=== PATIENT | male | born 1955 | race Caucasian/White ===

== ENCOUNTER → 2016-06-01 | Outpatient (REF) | payer OTHER | LOC: M LAB REF 12:25 | PROVIDERS: ATTEND Nurse Practitioner Adult Health | DX: R31.9 Hematuria, unspecified (principal) ==

== ENCOUNTER → 2016-08-26 | Outpatient (REF) | payer OTHER | LOC: M LAB REF 12:21 | PROVIDERS: ATTEND Nurse Practitioner Adult Health | DX: Z01.818 Encounter for other preprocedural examination (principal); N20.0 Calculus of kidney; R31.9 Hematuria, unspecified ==

== ENCOUNTER → 2016-12-06 | Outpatient (REF) | payer OTHER ==
[~2016-12-06] MED LIST: ACET30TAB PO; ASPI1TAB PO; CO Q10CA PO; COUM2.5T17 PO; FISH100049 PO; LISI10TA4 PO; MULT1TAB10 PO; OMEGCAP2 PO; PERC5TAB12 PO; ROSU20TA PO; SOMA250T PO; UBIQ100C3 PO
== END ==
LOC: M LAB REF 13:16
PROVIDERS: ATTEND Nurse Practitioner Adult Health
DX: N39.0 Urinary tract infection, site not specified (principal)

== ENCOUNTER 2017-09-15 08:00 | Day surgery (SDC) | payer OTHER ==
[2017-09-15] MEDS ORDERED: NS 1,000 ML IV (08:15)
[2017-09-15] MEDS ORDERED: LIDOCAINE 2% INJ 100 MG/5 ML SDV (FOR ANES.) As Ordered (09:10)
[2017-09-15] MEDS ORDERED: PROPOFOL 200 MG/20 ML VIAL As Ordered (09:11)
== END 2017-09-15 10:15 | disposition home or self-care (01) ==
LOC: M OPP 08:00
DX: Z12.11 Encounter for screening for malignant neoplasm of colon (principal); K57.30 Diverticulosis of large intestine without perforation or abscess without bleeding; K63.5 Polyp of colon; Z86.010 Personal history of colon polyps; I10 Essential (primary) hypertension; E78.5 Hyperlipidemia, unspecified; G47.30 Sleep apnea, unspecified; Z79.82 Long term (current) use of aspirin; Z79.899 Other long term (current) drug therapy; Z87.891 Personal history of nicotine dependence; Z95.5 Presence of coronary angioplasty implant and graft; Z85.49 Personal history of malignant neoplasm of other male genital organs
CPT/HCPCS: 45380

== ENCOUNTER → 2018-07-24 | Outpatient (REF) | payer OTHER ==
[~2018-07-24] MED LIST changes: +ACET-716 PO; -ACET30TAB PO; -ASPI1TAB PO; +ASPI81TA26 PO; +GABA-843; +LORA-243; +MOBI4TAB PO; +NITR4TASL SL; -ROSU20TA PO; +ROSU20TA4 PO; +TYLETAB14 PO
[2018-07-24 14:37] LABS: APPEARANCE, URINE CLOUDY (CLEAR); BACTERIA, URINE AUTO 1+ (NEGATIVE); BILIRUBIN, URINE AUTO NEGATIVE (NEGATIVE); BLOOD, URINE BLOOD NEGATIVE (NEGATIVE); COLOR, URINE AMBER (YELLOW); GLUCOSE, URINE (UA) AUTO NEGATIVE (NEGATIVE); KETONE, URINE AUTO TRACE mg/dL (NEGATIVE); LEUKOCYTE ESTERASE, URINE AUTO 2+ (NEGATIVE); NITRITE, URINE AUTO NEGATIVE (NEGATIVE); PROTEIN, URINE AUTO 1+ mg/dL (NEGATIVE); RBC, URINE AUTO 5 /HPF (0-3); SPECIFIC GRAVITY URINE AUTO 1.025 (1.002-1.035); SQUAMOUS EPITHELIAL CELL UR AU 1 /HPF (0-6); UROBILINOGEN, URINE AUTO 0.2 mg/dL (0.0-2.0); WBC, URINE AUTO 49 /HPF (0-3)
== END ==
LOC: M LAB REF 12:43
PROVIDERS: ATTEND Nurse Practitioner Adult Health
DX: Z01.818 Encounter for other preprocedural examination (principal); N20.0 Calculus of kidney

== ENCOUNTER → 2018-08-13 | Outpatient (CLI) | payer OTHER ==
--- NOTE | 2018-08-13 11:52 | REP ---
Clinical: Kidney stone. Technique: Single supine view of the abdomen and pelvis. Findings: No prior examinations available for comparison. Evaluation is limited by technique and bowel gas. Urinary tract calcification cannot be excluded based on current examination. No bowel obstruction. Skeletal structures demonstrate age-related degenerative changes. Presumed phleboliths in the pelvis. Impression: Limited examination for urinary tract calcifications. Consider noncontrast CT of the abdomen and pelvis if necessary. Electronically Signed by Corey Pérez MD 08/13/2018 11:43 A
== END ==
LOC: M LAB 11:23
PROVIDERS: ATTEND Urology
DX: N20.0 Calculus of kidney (principal)

== ENCOUNTER → 2020-06-09 | Outpatient (CLI) | payer MEDICARE, OTHER ==
[~2020-06-09] MED LIST changes: +GABA-282; -GABA-843; +LISI10TA22 PO; -LISI10TA4 PO; -ROSU20TA4 PO; +ROSU20TA5 PO
--- NOTE | 2020-06-09 12:37 | REP ---
INDICATION: LUNG SCREENING. COMPARISON: None. TECHNIQUE: The study is performed without IV contrast. Images are presented at lung windowing only. FINDINGS: There is a 6 mm right upper lobe lung nodule on image 24. This is a category 3 lung nodule with the probability of malignancy 5%. Recommend follow-up chest CT in 6 months for further evaluation. There is a 4 mm right upper lobe lung nodule on image 38. There is is a category 2 lung nodule with the probability of malignancy less than 1%. Annual follow-up of this nodule is recommended, however, neck and also be re-evaluated on the six-month follow-up CT recommended above. IMPRESSION: Category 3 low-dose lung screening chest CT as discussed above. I would recommend follow-up chest CT in 6 months for further evaluation of the 6 mm right upper lobe lung nodule <Electronically signed by Juan Pablo Cerna > 06/09/20 [id number]
== END ==
LOC: M RAD 09:35
PROVIDERS: ATTEND Nurse Practitioner Adult Health
DX: Z87.891 Personal history of nicotine dependence (principal); R91.8 Other nonspecific abnormal finding of lung field

== ENCOUNTER → 2021-05-14 | Outpatient (CLI) | payer MEDICARE, OTHER | LOC: M RAD 14:11 | PROVIDERS: ATTEND Nurse Practitioner Adult Health | DX: Z12.2 Encounter for screening for malignant neoplasm of respiratory organs (principal); Z87.891 Personal history of nicotine dependence ==

== ENCOUNTER → 2022-08-19 | Outpatient (CLI) | payer MEDICARE, OTHER | LOC: M RAD 13:16 | PROVIDERS: ATTEND Nurse Practitioner Adult Health | DX: Z12.2 Encounter for screening for malignant neoplasm of respiratory organs (principal); F17.211 Nicotine dependence, cigarettes, in remission; R91.1 Solitary pulmonary nodule ==

== ENCOUNTER → 2022-10-12 | Outpatient (REF) | payer MEDICARE, OTHER ==
[~2022-10-12] MED LIST changes: -ROSU20TA5 PO; +ROSU20TA61 PO
== END ==
LOC: M LAB REF 09:12
PROVIDERS: ATTEND Surgery
DX: L72.0 Epidermal cyst (principal)